=== PATIENT | female | born 1995 | race Caucasian/White ===

== ENCOUNTER 2016-10-15 10:32 | Emergency (ER) | payer BC, OTHER ==
[2016-10-15 10:40] VITALS: BP 133/83
--- NOTE | 2016-10-15 10:57 | UC ---
Throat Pain/Nasal Silvano HPI - HPI Summary HPI Summary: Mild laryngitis and chest congestion starting 4-5 days ago, worsening breathing that required nebulized albuterol starting 3 days ago with thick sputum. Yesterday sudden onset marked ST, pt is concerned about strep. Feels she can control her asthma symptoms well at this time with her albuterol. Denies fever. - History of Current Complaint Chief Complaint: UCRespiratory Stated Complaint: SORE THROAT,CHEST CONGESTION Time Seen by Provider: 10/15/16 10:42 Hx Obtained From: Patient Hx Last Menstrual Period: Nuva Ring, uses constantly to avoid menses ?: No Onset/Duration: Gradual Onset, Lasting Days Severity: Mild Cough: Sputum Appears - thick Associated Signs & Symptoms: Positive: Wheezing. Negative: Sinus Discomfort, Nasal Discharge - Allergies/Home Medications Allergies/Adverse Reactions: Allergies Allergy/AdvReac Type Severity Reaction Status Date / Time No Known Allergies Allergy Verified 10/15/16 10:40 Home Medications: Home Medications Nuva Ring 1 dose VAGINAL MONTHLY 10/15/16 [History Confirmed 10/15/16] PMH/Surg Hx/FS Hx/Imm Hx Respiratory History Of: Reports: Asthma - Surgical History Surgical History: Yes Surgery Procedure, Year, and Place: JAW FX REPAIR JAN 2013 - Family History Known Family History: Negative: Blood Disorder - Social History Occupation: Employed Part-time Alcohol Use: Occasionally Substance Use Type: None Smoking Status (MU): Never Smoked Tobacco - Immunization History Vaccination Up to Date: Yes Review of Systems Constitutional: Negative Skin: Negative Eyes: Negative ENT: Sore Throat Respiratory: Cough Cardiovascular: Negative Gastrointestinal: Negative Genitourinary: Negative Motor: Negative Neurovascular: Negative Musculoskeletal: Negative Neurological: Negative Psychological: Negative All Other Systems Reviewed And Are Negative: Yes Physical Exam Triage Information Reviewed: Yes Appearance: Well-Appearing, No Pain Distress, Well-Nourished Vital Signs: Initial Vital Signs Temp 98.1 F 10/15/16 10:37 Pulse 98 10/15/16 10:37 Resp 14 10/15/16 10:37 BP 133/83 10/15/16 10:37 Pulse Ox 97 10/15/16 10:37 Vital Signs Reviewed: Yes Eye Exam: Normal Eyes: Positive: Conjunctiva Clear ENT: Positive: Hearing grossly normal, Pharynx normal, TMs normal, Tonsillar swelling. Negative: Tonsillar exudate Dental Exam: Normal Neck exam: Normal Neck: Positive: Supple, Nontender, No Lymphadenopathy Respiratory Exam: Normal, Other - no cough or wheezing noted Respiratory: Positive: Chest non-tender, Lungs clear, Normal breath sounds, No respiratory distress, No accessory muscle use Cardiovascular Exam: Normal Cardiovascular: Positive: RRR, No Murmur Musculoskeletal Exam: Normal Neurological Exam: Normal Neurological: Positive: Alert Psychological Exam: Normal Skin Exam: Normal Throat Pain/Nasal Course/Dx - Differential Dx/Diagnosis Provider Diagnoses: URI, likely viral. asthma exacerbation. Elevated blood pressure due to discomfort Discharge - Discharge Plan Condition: Stable Disposition: HOME Patient Education Materials: Upper Respiratory Infection (ED) Referrals: John Du DO [Primary Care Provider] - Additional Instructions: As we discussed, you should be seen again if you cannot manage your symptoms with your albuterol (or if you are needing your albuterol more than every 4 hours). Call or return if you develop increasing fever, shortness of breath, chest pain , bloody sputum, or otherwise worsen. If you have not improved at all after several days, contact your primary care physician or return here.
== END 2016-10-15 11:16 | disposition home or self-care (01) ==
LOC: UCCORT 10:32
DX: J06.9 Acute upper respiratory infection, unspecified (principal); J45.901 Unspecified asthma with (acute) exacerbation; R03.0 Elevated blood-pressure reading, without diagnosis of hypertension
CPT/HCPCS: 87651; 99211; G0463

== ENCOUNTER 2016-12-30 10:14 | Emergency (ER) | payer OTHER ==
--- NOTE | 2016-12-30 10:22 | UC ---
Lower Extremity/Ankle HPI - HPI Summary HPI Summary: 21 year old female presents with pain over the dorsum of the left foot. - History of Current Complaint Stated Complaint: LFT FOOT PAIN Time Seen by Provider: 12/30/16 10:16 Hx Last Menstrual Period: Nuva Ring, uses constantly to avoid menses - Allergies/Home Medications Allergies/Adverse Reactions: Allergies Allergy/AdvReac Type Severity Reaction Status Date / Time No Known Allergies Allergy Verified 12/30/16 10:37 PMH/Surg Hx/FS Hx/Imm Hx Previously Healthy: Yes - Surgical History Surgical History: Yes Surgery Procedure, Year, and Place: JAW FX REPAIR JAN 2013 - Family History Known Family History: Negative: Blood Disorder - Social History Alcohol Use: Occasionally Substance Use Type: None Smoking Status (MU): Never Smoked Tobacco - Immunization History Vaccination Up to Date: Yes Review of Systems Constitutional: Negative Skin: Negative Eyes: Negative ENT: Negative Respiratory: Negative Cardiovascular: Negative Gastrointestinal: Negative Genitourinary: Negative Motor: Negative Neurovascular: Negative Musculoskeletal: Other: - pain over the dorsum of left foot Neurological: Negative Psychological: Negative All Other Systems Reviewed And Are Negative: Yes Physical Exam Triage Information Reviewed: Yes Eye Exam: Normal ENT Exam: Normal Dental Exam: Normal Neck exam: Normal Neck: Positive: 1 Respiratory Exam: Normal Cardiovascular Exam: Normal Abdominal Exam: Normal Musculoskeletal: Positive: Other: - left dorsum foot tendonitis Neurological Exam: Normal Psychological Exam: Normal Skin Exam: Normal Lower Extremity Course/Dx - Differential Dx/Diagnosis Provider Diagnoses: left foot pain. tendonitis Discharge - Discharge Plan Condition: Stable Disposition: HOME Prescriptions: Diclofenac 1% GEL (NF) [Voltaren 1% GEL (NF)] 2 gm TOPICAL BID PRN #1 tube PRN Reason: Pain - Moderate Meloxicam [Mobic] 7.5 mg PO BID #30 tab Patient Education Materials: Foot Sprain (ED) Referrals: John Du DO [Primary Care Provider] - If Needed
--- NOTE | 2016-12-30 10:44 | RAD ---
HISTORY: Left foot pain COMPARISONS: None VIEWS: 3, Frontal, lateral, and oblique views of the left foot FINDINGS: BONE DENSITY: Normal. BONES: There is no displaced fracture. JOINTS: There is no arthropathy. ALIGNMENT: There is no dislocation. SOFT TISSUES: Unremarkable. OTHER FINDINGS: None. IMPRESSION: NO ACUTE OSSEOUS INJURY. IF SYMPTOMS PERSIST, RECOMMEND REPEAT IMAGING.
[2016-12-30 10:47] VITALS: BP 112/69
== END 2016-12-30 11:11 | disposition home or self-care (01) ==
LOC: UCCORT 10:14
DX: M79.672 Pain in left foot (principal); M77.52 Other enthesopathy of left foot and ankle
CPT/HCPCS: 99212; G0463

== ENCOUNTER 2017-09-28 10:34 | Emergency (ER) | payer OTHER ==
[2017-09-28 11:36] VITALS: BP 108/78
--- NOTE | 2017-09-28 12:07 | UC ---
Respiratory Complaint HPI - HPI Summary HPI Summary: 22 year old female with history of Asthma (no prior intubation or hospitilization) here for cough and congestion for 4 days. Reports symptoms started with sore throat and now she has thick mucus that she is not able to cough out. She denies any headache, fever, n/v/d or any other complaints. Took her neb tomorrow with partial relief. No other complaints. - History of Current Complaint Chief Complaint: UCRespiratory Stated Complaint: CHEST CONGESTION Time Seen by Provider: 09/28/17 11:52 Hx Last Menstrual Period: 1 Yr+ ?: No Onset/Duration: Sudden Onset Timing: Constant Pain Intensity: 0 Alleviating Factors: Bronchodilator Associated Signs And Symptoms: Positive: Wheezing, URI, Nasal Congestion. Negative: Dyspnea, Fever, Chills - Allergies/Home Medications Allergies/Adverse Reactions: Allergies Allergy/AdvReac Type Severity Reaction Status Date / Time seasonal Allergy Congestion Uncoded 09/28/17 11:37 Home Medications: Home Medications Meloxicam [Mobic] 7.5 mg PO BID PRN 09/28/17 [History Confirmed 09/28/17] PMH/Surg Hx/FS Hx/Imm Hx - Surgical History Surgical History: Yes Surgery Procedure, Year, and Place: JAW FX REPAIR JAN 2013 - Family History Known Family History: Positive: None Negative: Blood Disorder - Social History Alcohol Use: Occasionally Alcohol Amount: 1xweek Substance Use Type: None Smoking Status (MU): Never Smoked Tobacco - Immunization History Most Recent Influenza Vaccination: 2015 Most Recent Tetanus Shot: UTD Most Recent Pneumonia Vaccination: N/A Vaccination Up to Date: Yes Review of Systems Constitutional: Negative Skin: Negative, Rash Eyes: Negative Respiratory: Shortness Of Breath, Cough Cardiovascular: Negative Gastrointestinal: Negative Genitourinary: Negative Motor: Negative Neurovascular: Negative All Other Systems Reviewed And Are Negative: Yes Physical Exam Triage Information Reviewed: Yes Appearance: Well-Appearing Vital Signs: Initial Vital Signs Temp 37.2 C 09/28/17 11:30 Pulse 88 09/28/17 11:30 Resp 18 09/28/17 11:30 BP 108/78 09/28/17 11:30 Pulse Ox 99 09/28/17 11:30 Eye Exam: Normal ENT Exam: Normal Dental Exam: Normal Neck exam: Normal Respiratory Exam: Normal Respiratory: Negative: Wheezing Cardiovascular Exam: Normal Cardiovascular: Positive: RRR, No Murmur Abdominal Exam: Normal Musculoskeletal Exam: Normal Neurological Exam: Normal Skin Exam: Normal UC Diagnostic Evaluation - Laboratory O2 Sat by Pulse Oximetry: 99 Respiratory Course/Dx - Course Course Of Treatment: URI. patient appears non-toxic, well appearing. Discussed about abx(which she requested) vs. symptomatic treatment. Agrees with symptomatic treatment after discussion of antbiotics risk vs. benefits. - Differential Dx/Diagnosis Differential Diagnosis/HQI/PQRI: Asthma, Laryngitis, Other Provider Diagnoses: Viral illness Discharge - Sign-Out/Discharge Documenting (check all that apply): Discharge/Admit/Transfer - Discharge Plan Condition: Good Disposition: HOME Patient Education Materials: Viral Syndrome (ED) Forms: *Work Release Referrals: John Du DO [Primary Care Provider] - - Billing Disposition and Condition Condition: GOOD Disposition: HOME
== END 2017-09-28 12:20 | disposition home or self-care (01) ==
LOC: UCCORT 10:34
DX: B34.9 Viral infection, unspecified (principal)
CPT/HCPCS: 99212; G0463

== ENCOUNTER 2019-05-23 11:38 | Emergency (ER) | payer OTHER ==
[2019-05-23 11:57] VITALS: BP 159/105
--- NOTE | 2019-05-23 13:51 | UC ---
Respiratory Complaint HPI - HPI Summary HPI Summary: 23 yo female with 2 day hx of sore throat/cough and congestion +headache has asthma no cp or sob not wheezing no n/v/d - History of Current Complaint Chief Complaint: UCGeneralIllness Stated Complaint: ST/CHANDRA/CONGESTION/CHILLS Time Seen by Provider: 05/23/19 13:32 Hx Obtained From: Patient Hx Last Menstrual Period: 05/14/19 Onset/Duration: Gradual Onset, Lasting Days Timing: Constant Severity Initially: Mild Severity Currently: Mild Pain Intensity: 3 Pain Scale Used: 0-10 Numeric Character: Cough: Productive Aggravating Factors: Nothing Alleviating Factors: Nothing Associated Signs And Symptoms: Positive: Fever - alee, Chills, Nasal Congestion - Allergies/Home Medications Allergies/Adverse Reactions: Allergies Allergy/AdvReac Type Severity Reaction Status Date / Time seasonal Allergy Congestion Uncoded 05/23/19 11:57 PMH/Surg Hx/FS Hx/Imm Hx Previously Healthy: Yes - Surgical History Surgical History: Yes Surgery Procedure, Year, and Place: JAW FX REPAIR JAN 2013 - Family History Known Family History: Positive: None Negative: Blood Disorder - Social History Alcohol Use: Occasionally Alcohol Amount: 1xweek Substance Use Type: None Smoking Status (MU): Never Smoked Tobacco - Immunization History Most Recent Influenza Vaccination: 2016 Most Recent Tetanus Shot: UTD Most Recent Pneumonia Vaccination: N/A Vaccination Up to Date: Yes Review of Systems All Other Systems Reviewed And Are Negative: Yes Constitutional: Positive: Chills, Fatigue Skin: Positive: Negative Eyes: Positive: Negative ENT: Positive: Sore Throat, Nasal Discharge, Sinus Congestion Respiratory: Positive: Cough Cardiovascular: Positive: Negative Gastrointestinal: Positive: Negative Genitourinary: Positive: Negative Motor: Positive: Negative Neurovascular: Positive: Negative Musculoskeletal: Positive: Negative Neurological: Positive: Negative Psychological: Positive: Negative Physical Exam Triage Information Reviewed: Yes Appearance: Well-Appearing, No Pain Distress, Well-Nourished Vital Signs: Initial Vital Signs Temp 100.3 F 05/23/19 11:54 Pulse 100 05/23/19 11:54 Resp 20 05/23/19 11:54 BP 159/105 05/23/19 11:54 Pulse Ox 98 05/23/19 11:54 Vital Signs Reviewed: Yes Eyes: Positive: Conjunctiva Clear ENT: Positive: Hearing grossly normal, Pharyngeal erythema, Nasal congestion, Sinus tenderness, Uvula midline. Negative: Tonsillar swelling, Tonsillar exudate, Trismus, Muffled voice, Hoarse voice Dental Exam: Normal Neck: Positive: Supple, Nontender, No Lymphadenopathy Respiratory: Positive: Lungs clear, Normal breath sounds, No respiratory distress, No accessory muscle use, Wheezing - with forced expiration Cardiovascular: Positive: RRR, No Murmur Abdominal Exam: Normal Bowel Sounds: Positive: Present Musculoskeletal: Positive: ROM Intact, No Edema Neurological: Positive: Alert Psychological Exam: Normal Skin Exam: Normal Respiratory Course/Dx - Differential Dx/Diagnosis Provider Diagnosis: Viral URI with cough, Bronchospasm, Elevated BP without diagnosis of hypertension Discharge ED - Sign-Out/Discharge Documenting (check all that apply): Patient Departure All imaging exams completed and their final reports reviewed: No Studies - Discharge Plan Condition: Stable Disposition: HOME Prescriptions: Albuterol 2.5MG/3ML (0.083%)* [Ventolin 2.5 MG/3 ML NEB.KUNAL*] 2.5 mg INH QID PRN #1 neb.kunal PRN Reason: Wheezing predniSONE TAB* [Deltasone 20 MG TAB*] 40 mg PO DAILY #8 tab Patient Education Materials: Upper Respiratory Infection (ED) Referrals: John Du DO [Primary Care Provider] - 4 Days (if not better ) Additional Instructions: BP a little high here Please get it rechecked in 2-20 weeks - Billing Disposition and Condition Condition: STABLE Disposition: Home
[2019-05-23 13:57] LABS: Influenza A Molecular NEGATIVE (Negative); Influenza B Molecular NEGATIVE (Negative)
== END 2019-05-23 14:17 | disposition home or self-care (01) ==
LOC: UCCORT 11:38
DX: J06.9 Acute upper respiratory infection, unspecified (principal); J98.01 Acute bronchospasm; R05 Cough; R03.0 Elevated blood-pressure reading, without diagnosis of hypertension; Z91.09 Other allergy status, other than to drugs and biological substances
CPT/HCPCS: 87651; 99212; G0463